=== PATIENT | male | born 1945 | race Caucasian/White ===

== ENCOUNTER 2018-12-07 00:01 | Inpatient (IN) | payer MEDICARE, OTHER ==
[~2018-12-07] VITALS: Ht 165.1 cm; Wt 61.2 kg
[2018-12-07] VITALS (7 sets, daily range): BP systolic 96–141; BP diastolic 58–82
--- NOTE | 2018-12-07 00:02 | NUR ---
ED Nurse Note: patient was BIBA due to ALOC, failure to thrive, not eating well and coughing for a week. Pt is AO x 1~2 times due to dementia status, VSS, on room air no distress. JARETTD seen Pt at bedside.
--- NOTE | 2018-12-07 00:33 | Emergency Room Report ---
History of Present Illness General Chief Complaint: Altered Level of Consciousness Source: Medical Record, EMS Present Illness HPI This is a 73-year-old male with multiple medical problems from care home. He presents with chief complaint of altered mental status. At baseline he is confused and bedbound. According to care home note, more confused of late. Decreased appetite. Had a nonproductive cough for the last week. No fever chills but no nausea no vomiting. No diarrhea. Allergies: Coded Allergies: No Known Allergies (Unverified , 12/07/18) Patient History Past Medical History: see triage record, old chart reviewed Past Surgical History: other Pertinent Family History: none Social History: Denies: smoking Immunizations: other Reviewed Nursing Documentation: PMH: Agreed; PSxH: Agreed Nursing Documentation-PMH Hx COPD: Yes History Of Psychiatric Problem: Yes - schizophrenia Hx Neurological Problems: Yes - insomnia Review of Systems Constitutional: Reports: weakness Eye: Denies: eye pain, blurred vision ENT: Denies: ear pain, nose congestion, throat swelling Respiratory: Reports: cough; Denies: shortness of breath Cardiovascular: Denies: chest pain, palpitations Gastrointestinal: Denies: abdominal pain, diarrhea, nausea, vomiting Musculoskeletal: Denies: back pain, joint pain Skin: Denies: rash Neurological: Denies: headache, numbness Endocrine: Denies: increased thirst, increased urine Hematologic/Lymphatic: Denies: easy bruising All Other Systems: negative except mentioned in HPI Physical Exam Vital Signs Date Time Temp Pulse Resp B/P (MAP) Pulse Ox O2 Delivery O2 Flow Rate FiO2 12/07/18 00:02 97.7 80 19 104/70 (81) 96 Room Air Vitals normal Sp02 EP Interpretation: reviewed, normal General Appearance: alert, thin, Chronically Ill Head: normocephalic, atraumatic Eyes: bilateral eye PERRL, bilateral eye EOMI ENT: hearing grossly normal, normal pharynx Neck: full range of motion, supple, no meningismus Respiratory: chest non-tender, lungs clear, normal breath sounds Cardiovascular #1: regular rate, rhythm, no murmur Gastrointestinal: normal bowel sounds, non tender, no mass, no organomegaly, no bruit, non-distended Musculoskeletal: back normal, other - Contracted Psychiatric: mood/affect normal Medical Decision Making Diagnostic Impression: Primary Impression: Altered level of consciousness Additional Impressions: Failure to thrive in adult CADENCE (acute kidney injury) ER Course Patient with altered mental status secondary to probably viral infection with a cough and elevated monocyte count. No evidence of bacterial infection. Chest x -ray negative. Troponin normal. Urinalysis unremarkable. Patient better after IV fluid. Will admit for further work-up. Patient will be admitted to the service of Dr. Alvarado. EKG Diagnostic Results Rate: normal Rhythm: NSR ST Segments: no acute changes Rhythm Strip Diag. Results EP Interpretation: yes Rate: 90 Rhythm: NSR, no PVC's, no ectopy Chest X-Ray Diagnostic Results Chest X-Ray Diagnostic Results : Chest X-Ray Ordered: Yes # of Views/Limited/Complete: 1 View Indication: Other EP Interpretation: Yes Interpretation: no consolidation, no effusion, no pneumothorax, no acute cardiopulmonary disease Impression: No acute disease Electronically Signed by: Francisco Piedra MD Last Vital Signs Date Time Temp Pulse Resp B/P (MAP) Pulse Ox O2 Delivery O2 Flow Rate FiO2 12/07/18 00:02 97.7 80 19 104/70 (81) 96 Room Air Status: improved Disposition: ADMITTED INPATIENT Condition: Serious Francisco Piedra MD Dec 07, 2018 00:33
[2018-12-07 00:38] LABS: BASOPHILS % (AUTO) 1.8 % (0.0-2.0); EOSINOPHILS % (AUTO) 2.5 % (0.0-3.0); HEMATOCRIT 42.5 % (42.0-52.0); LYMPHOCYTES % (AUTO) 41.2 % (20.0-45.0); MEAN CORPUSCULAR VOLUME 90 FL (80-99); MONOCYTES % (AUTO) 10.1 % (1.0-10.0); NEUTROPHILS % (AUTO) 44.5 % (45.0-75.0); PLATELET COUNT 321 K/UL (150-450); RED CELL DISTRIBUTION WIDTH 13.4 % (11.6-14.8); WHITE BLOOD COUNT 8.4 K/UL (4.8-10.8)
--- NOTE | 2018-12-07 00:42 | NUR ---
ED Nurse Note: Urine and blood sample sent to lab.
[2018-12-07 00:50] LABS: ANION GAP 8 mmol/L (5-15); BLOOD UREA NITROGEN 29 mg/dL (7-18); CALCIUM 9.8 MG/DL (8.5-10.1); CARBON DIOXIDE 26 MMOL/L (21-32); CHLORIDE 104 MMOL/L (98-107); CREATININE 1.5 MG/DL (0.55-1.30); POTASSIUM 4.8 MMOL/L (3.5-5.1); SODIUM 138 MMOL/L (136-145)
[2018-12-07 00:55] LABS: ALANINE AMINOTRANSFERASE 13 U/L (12-78); ALBUMIN 3.5 G/DL (3.4-5.0); ALBUMIN/GLOBULIN RATIO 0.8 (1.0-2.7); ALKALINE PHOSPHATASE 163 U/L (46-116); ASPARTATE AMINO TRANSFERASE 29 U/L (15-37); BILIRUBIN,TOTAL 0.4 MG/DL (0.2-1.0)
[2018-12-07 01:00] LABS: APPEARANCE,URINE CLEAR; BILIRUBIN, URINE NEGATIVE (NEGATIVE); COLOR,URINE PALE YELLOW; GLUCOSE, URINE (UA) NEGATIVE (NEGATIVE); KETONES,URINE NEGATIVE (NEGATIVE); LEUKOCYTE ESTERASE ,URINE 1+ (NEGATIVE); NITRITE,URINE NEGATIVE (NEGATIVE); PH,URINE 6.5 (4.5-8.0); PROTEIN,URINE 2+ (NEGATIVE); UROBILINOGEN,URINE NORMAL MG/DL (0.0-1.0)
--- NOTE | 2018-12-07 01:30 | NUR ---
ED Nurse Note: Offered drink and snack for Pt, Pt finished 100%.
--- NOTE | 2018-12-07 02:05 | NUR ---
ED Nurse Note: Pt removed IV site.
[2018-12-07] MEDS ORDERED: LEXAPRO10 MG ORAL (02:43)
[2018-12-07] MEDS ORDERED: GERI-KOT8.6 MG PO (02:43)
[2018-12-07] MEDS ORDERED: MESALAMINE DR400 MG PO (02:43)
[2018-12-07] MEDS ORDERED: SEROQUEL100 MG ORAL (02:43)
[2018-12-07] MEDS ORDERED: MELATONIN5 M2 SL (02:43)
[2018-12-07] MEDS ORDERED: CANAASA1000 MG RECTAL (02:43)
[2018-12-07] MEDS ORDERED: ATIVAN0.5 MG ORAL (02:43)
[2018-12-07] MEDS ORDERED: DULCOLAX STOOL100 M2 PO (02:43)
[2018-12-07] MEDS ORDERED: FLOMAX0.4 MG ORAL (02:43)
[2018-12-07] MEDS ORDERED: ABATINEX680 MG PO (02:43)
[2018-12-07] MEDS ORDERED: DOCUSATE SODIU100 MG ORAL (02:43)
[2018-12-07] MEDS ORDERED: LORazepam Inj 2mg/ml 1ml IV ONE ×2 (03:15→05:00)
--- NOTE | 2018-12-07 03:33 | NUR ---
ED Nurse Note: Pt will aboard in ER due to no sitter on floor. Inform 4E charge nurse and will give report at 6:00 in the morning.
--- NOTE | 2018-12-07 04:30 | NUR ---
ED Nurse Note: Pt restless and wants to get up, stay closer to monitor Pt for fall risk.
[2018-12-07] MEDS ORDERED: LORazepam Inj 2mg/ml 1ml ONE (04:54)
--- NOTE | 2018-12-07 06:30 | NUR ---
ED Nurse Note: Report given to charge nurse Elizabeth. Pt is AO x 4times, VSS, on room air no distress. Await transfer to floor when sitter arrive floor.
--- NOTE | 2018-12-07 07:04 | NUR ---
TRANSFER TO FLOOR: Patient transferred to as ordered, per Jenny. Report given to Elizabeth GUILLAUME.
--- NOTE | 2018-12-07 07:30 | NUR ---
NURSE NOTES: Received pt from [facility]. Pt is confused x2.pt is in RA, No SOB or acute respiratory distress noted. pt has intact iv access LFA 20G SL. Pt has a sitter. Dr HERBERT is notified about admission, waiting to call back for orders. all needs attended, bed is locked and is in the lowest position. call light within easy reach. will continue to monitor.
--- NOTE | 2018-12-07 09:15 | NUR ---
NURSE NOTES: Dr HERBERT called back, all orders noted and carried out. Dr JOHNSON and SHAVON are aware about consult. will continue to monitor.
--- NOTE | 2018-12-07 09:20 | NUR ---
NURSE NOTES: RN clarified all admission assessments and home meds orders with [facility]. Dr HERBERT ORDERED TO d/c MELATONIN.noted and carried out. will continue to monitor.
[2018-12-07] MEDS ORDERED: Acetaminophen 500mg (ES) tab ORAL PRN (09:30)
--- NOTE | 2018-12-07 10:54 | GI Initial Consult Note ---
History of Present Illness General Date patient seen: Dec 07, 2018 Time patient seen: 10:50 Reason for Hospitalization: Altered Level of Consciousness Referring physician: ROC HERBERT Reason for Consultation: FTT Present Illness HPI This is a 73-year-old male with multiple medical problems from [facility]. He presents with chief complaint of altered mental status. At baseline he is confused and bedbound. According to [facility] note, more confused of late. Decreased appetite. Had a nonproductive cough for the last week. No fever chills but no nausea no vomiting. No diarrhea. GI consulted for failure to thrive. ROS limited, patient with altered mental status. Patient seen, awake alert no apparent distress with no active signs or symptoms of nausea vomiting or diarrhea. No reported abdominal pain. Reported that the patient had severe agitation in the emergency room, but is calm at this time. Reported that the patient had decreased appetite. Unknown if patient had unintentional weight loss. No known history of endoscopic colonoscopy. Labs reviewed; no leukocytosis, no anemia, elevated alkaline phosphatase 163. Home Meds Reported Medications Quetiapine Fumarate* (SEROQUEL*) 100 Mg Tablet, 100 MG ORAL DAILY, TAB 12/07/18 Mesalamine (Mesalamine Dr) 400 Mg Cap.drtab., 400 MG PO 12/07/18 Mesalamine (Canasa) 1,000 Mg Supp.rect, 1000 MG RECTAL, SUPP 12/07/18 Melatonin (MELATONIN) 5 Mg Tab.subl, 5 MG SL BEDTIME PRN for Insomnia, TAB 12/07/18 Escitalopram Oxalate* (LEXAPRO*) 10 Mg Tablet, 10 MG ORAL DAILY, TAB 12/07/18 Lactobacillus Acidophilus (Abatinex) 680 Mg Capsule, 680 MG PO, CAP 12/07/18 Sennosides (Cookie-Natalya) 8.6 Mg Tablet, 8.6 MG PO, TAB 12/07/18 Tamsulosin HCl (Flomax) 0.4 Mg Cap.er.24h, 0.4 MG ORAL DAILY, CAP 12/07/18 Docusate Sodium (Dulcolax Stool Softener) 100 Mg Capsule, 100 MG PO, CAP 12/07/18 Docusate Sodium* (DOCUSATE SODIUM*) 100 Mg Capsule, 100 MG ORAL THREE TIMES A DAY, CAP 12/07/18 Lorazepam* (ATIVAN*) 0.5 Mg Tablet, 0.5 MG ORAL THREE TIMES A DAY, TAB 12/07/18 Med list reviewed/reconciled: Yes Allergies: Coded Allergies: No Known Allergies (Unverified , 12/07/18) Patient History History Provided By: Patient, Medical Record PMH Narrative Past Medical History: see triage record, old chart reviewed Past Surgical History: other Pertinent Family History: none Social History: Denies: smoking Immunizations: other Reviewed Nursing Documentation: PMH: Agreed; PSxH: Agreed Nursing Documentation-PMH Hx COPD: Yes History Of Psychiatric Problem: Yes - schizophrenia Hx Neurological Problems: Yes - insomnia Review of Systems All Other Systems: negative except mentioned in HPI Physical Exam Vital Signs Date Time Temp Pulse Resp B/P (MAP) Pulse Ox O2 Delivery O2 Flow Rate FiO2 12/07/18 00:02 97.7 80 19 104/70 (81) 96 Room Air Sp02 EP Interpretation: reviewed, normal Labs Laboratory Tests Test 12/07/18 00:20 12/07/18 00:36 White Blood Count 8.4 K/UL (4.8-10.8) Red Blood Count 4.70 M/UL (4.70-6.10) Hemoglobin 14.0 G/DL (14.2-18.0) L Hematocrit 42.5 % (42.0-52.0) Mean Corpuscular Volume 90 FL (80-99) Mean Corpuscular Hemoglobin 29.8 PG (27.0-31.0) Mean Corpuscular Hemoglobin Concent 33.0 G/DL (32.0-36.0) Red Cell Distribution Width 13.4 % (11.6-14.8) Platelet Count 321 K/UL (150-450) Mean Platelet Volume 9.2 FL (6.5-10.1) Neutrophils (%) (Auto) 44.5 % (45.0-75.0) L Lymphocytes (%) (Auto) 41.2 % (20.0-45.0) Monocytes (%) (Auto) 10.1 % (1.0-10.0) H Eosinophils (%) (Auto) 2.5 % (0.0-3.0) Basophils (%) (Auto) 1.8 % (0.0-2.0) Sodium Level 138 MMOL/L (136-145) Potassium Level 4.8 MMOL/L (3.5-5.1) Chloride Level 104 MMOL/L (98-107) Carbon Dioxide Level 26 MMOL/L (21-32) Anion Gap 8 mmol/L (5-15) Blood Urea Nitrogen 29 mg/dL (7-18) H Creatinine 1.5 MG/DL (0.55-1.30) H Estimat Glomerular Filtration Rate mL/min (>60) Glucose Level 102 MG/DL (74-106) Calcium Level 9.8 MG/DL (8.5-10.1) Total Bilirubin 0.4 MG/DL (0.2-1.0) Aspartate Amino Transf (AST/SGOT) 29 U/L (15-37) Alanine Aminotransferase (ALT/SGPT) 13 U/L (12-78) Alkaline Phosphatase 163 U/L (46-116) H Troponin I 0.015 ng/mL (0.000-0.056) Total Protein 7.8 G/DL (6.4-8.2) Albumin 3.5 G/DL (3.4-5.0) Globulin 4.3 g/dL Albumin/Globulin Ratio 0.8 (1.0-2.7) L Urine Color Pale yellow Urine Appearance Clear Urine pH 6.5 (4.5-8.0) Urine Specific [place] 1.010 (1.005-1.035) Urine Protein 2+ (NEGATIVE) H Urine Glucose (UA) Negative (NEGATIVE) Urine Ketones Negative (NEGATIVE) Urine Blood 3+ (NEGATIVE) H Urine Nitrite Negative (NEGATIVE) Urine Bilirubin Negative (NEGATIVE) Urine Urobilinogen Normal MG/DL (0.0-1.0) Urine Leukocyte Esterase 1+ (NEGATIVE) H Urine RBC 15-20 /HPF (0 - 0) H Urine WBC 2-4 /HPF (0 - 0) Urine Squamous Epithelial Cells None /LPF (NONE/OCC) Urine Bacteria Few /HPF (NONE) General Appearance: well appearing, no apparent distress, alert Head: normocephalic EENT: PERRL/EOMI, normal ENT inspection Neck: supple Respiratory: normal breath sounds, no respiratory distress Cardiovascular: normal rate Gastrointestinal: normal inspection, non tender, soft, normal bowel sounds, non -distended Rectal: deferred Genitourinary: deferred Musculoskeletal: normal inspection, back normal Neurologic: normal inspection, alert, oriented x3, responsive Psychiatric: normal inspection, judgement/insight normal, memory normal Skin: normal inspection, normal color, no rash, warm/dry, palpation normal, well hydrated Lymphatic: normal inspection, no adenopathy Current Medications Current Medications Medications (Trade) Dose Ordered Sig/Rah Route PRN Reason Start Time Stop Time Status Last Admin Dose Admin Acetaminophen (Tylenol) 500 mg Q4H PRN ORAL Mild Pain/Temp > 100.5 12/07/18 09:30 01/06/19 09:29 Docusate Sodium (Colace) 100 mg DAILY ORAL 12/08/18 09:00 01/07/19 08:59 Escitalopram Oxalate (Lexapro) 10 mg DAILY ORAL 12/08/18 09:00 01/07/19 08:59 Lactobacillus Acidophilus (Culturelle) 1 tab BID ORAL 12/07/18 18:00 01/06/19 17:59 Lorazepam (Ativan) 0.5 mg Q4H PRN ORAL For Anxiety 12/07/18 09:30 12/14/18 09:29 Mesalamine (Asacol) 800 mg THREE TIMES A DAY ORAL 12/07/18 13:00 01/06/19 12:59 Multivitamins (Multivitamins W/ Minerals 15ml Liquid) 15 ml DAILY ORAL 12/08/18 09:00 01/07/19 08:59 Quetiapine Fumarate (SEROquel) 100 mg TID ORAL 12/07/18 13:00 01/06/19 12:59 Sennosides (Senokot) 17.2 mg QHS ORAL 12/07/18 21:00 01/06/19 20:59 Tamsulosin HCl (Flomax) 0.4 mg BEDTIME ORAL 12/07/18 21:00 01/06/19 20:59 GI: Plan Problems: (1) Severe malnutrition (2) Altered level of consciousness (3) CADENCE (acute kidney injury) (4) Failure to thrive in adult Plan No plans for GI procedures at this time supportive care Patient is on a regular diet Obtain 48-hour calorie count We will consider Marinol Zofran as needed PPI Follow-up psychiatric recommendations outpatient GI procedures Discussed with Dr. Marcus. Thank you for this patient referral, we will follow. The patient was seen and examined at bedside and all new and available data was reviewed in the patients chart. I agree with the above findings, impression and plan. (Patient seen earlier today. Signature stamp does not reflect patient encounter time.). - MD Dorothea Arndt AnhColin SHOEMAKER Dec 07, 2018 10:54
[2018-12-07] MEDS: Mesalamine 400mg cap ORAL SCH ×2 (12:14→17:10)
--- NOTE | 2018-12-07 13:07 | Consultation ---
Consult Note Consult Note asked to eval for elevated Cr Chief Complaint: Altered Level of Consciousness This is a 73-year-old male with multiple medical problems from detention. He presents with chief complaint of altered mental status. At baseline he is confused and bedbound. According to detention note, more confused of late. Decreased appetite. Had a nonproductive cough for the last week. No fever chills but no nausea no vomiting. No diarrhea. No Known Allergies (Unverified , 12/07/18) Hx COPD: Yes History Of Psychiatric Problem: Yes - schizophrenia Hx Neurological Problems: Yes - insomnia examined non communicative at this time . Assessment/Plan dehydration Failure to Thrive COPD Psych history UTI Hydrate Urine c/s urine tox screen monitor renal parameters Gerardo Medina MD Dec 07, 2018 13:06
[2018-12-07] MEDS: Tamsulosin 0.4mg cap ORAL SCH ×2 (14:02→17:12)
--- NOTE | 2018-12-07 14:02 | Diagnostic Imaging Report ---
Indication: Dyspnea Comparison: None A single view chest radiograph was obtained. Findings: No definite infiltrate or pulmonary vascular congestion identified. Evaluation is limited by rotation. The heart is borderline enlarged. The aorta is mildly enlarged consistent with atherosclerotic vascular disease. The bones are osteopenic. Impression: No acute disease
--- NOTE | 2018-12-07 14:05 | NUR ---
RD ASSESSMENT & RECOMMENDATIONS SEE CARE ACTIVITY FOR COMPLETE ASSESSMENT DAILY ESTIMATED NEEDS: Needs based on Possibly underweight/ 51kg 30-35 kcals/kg 3966-8979 total kcals 1-1.5 g protein/kg 51-76 g total protein 25-30 mL/kg 9730-6573 total fluid mLs NUTRITION DIAGNOSIS: * Inadequate oral intake R/T decreased appetite, clinical condition, AMS as evidenced by pt admitted w/ dx of FTT, w/ possible significant wt loss of 6lbs/5.1% in 1 month. CURRENT DIET:LOW NA, soft easy chew PO DIET RECOMMENDATIONS: Liberalized REGULAR w/ poor PO + Ensure Enlive TID w/ meals ADDITIONAL RECOMMENDATIONS: * F/up w/ calorie count x 48 hrs * Calibrated bedscale wt, weekly wt monitoring -> possible recent significant wt loss -> ht per SNF: 61" * Continue MVI x 1 as supplement
--- NOTE | 2018-12-07 16:07 | NUR ---
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 CADENCE VS: BP 141/70, P 80, T 97.7, RR 19, SpO2 96 Hgb 14.0, BUN 29, CR 1.5, ALP 163 IS:NS x1L IV LORAZEPAM 1mg IV ADMITTED TO MED/SURG DCP: RETURN TO [facility]
--- NOTE | 2018-12-07 16:29 | NUR ---
NURSE NOTES: Dr HERBERT D/Brandyn white, noted and carried out. will continue to monitor.
--- NOTE | 2018-12-07 17:03 | Cardiology Report ---
APPROVED REPORT EKG Measurement Heart [id number] Normal sinus rhythm Inferior infarct, age undetermined Anterolateral infarct, age undetermined Abnormal ECG
[2018-12-07] MEDS: Docusate 100mg cap ORAL SCH (17:10)
[2018-12-07] MEDS: Lactobacillus-GG tablet ORAL SCH (17:11)
--- NOTE | 2018-12-07 19:33 | NUR ---
HAND-OFF: Report given to RN GALEN. ENDORSED TO F/U FOR COLLECTING URIN.
--- NOTE | 2018-12-07 20:30 | NUR ---
NURSE NOTES: Pt is in bed, awake and verbal. No acute distress noted. Pt is confused. Fall precaution in place, bed alarm on. Pt is able to eat. Pt moved close to nursing station. Bed locked low in position,side rails up and call light within reach.Pt instructed to call before getting out of bed. Pt will be monitored.
[2018-12-07] MEDS ORDERED: Tamsulosin 0.4mg cap ORAL SCH (21:00)
[2018-12-07] MEDS: Sennosides 8.6mg tab ORAL SCH (21:52)
--- NOTE | 2018-12-07 23:00 | History and Physical Report ---
DATE OF ADMISSION: 12/07/2018 HISTORY OF PRESENT ILLNESS: The patient is admitted for failure to thrive, dehydration from the shelter, azotemia. Denies nausea, vomiting, or diarrhea. Denies fever, chills, abdominal pain. Denies shortness of breath. Denies cough. Denies pain. Denies any symptoms at this point. PAST MEDICAL HISTORY: Significant for anxiety, constipation, mood disorder, insomnia, psychosis, BPH, hernia. PAST SURGICAL HISTORY: Hernia repair. SOCIAL HISTORY: History of smoking. No history of alcohol or illicit drugs. ALLERGIES: No known allergies. MEDICATIONS: Lexapro, Ativan, Seroquel, Senokot, and Flomax. FAMILY HISTORY: Noncontributory. REVIEW OF SYSTEMS: HEENT: Denies headaches. PULMONARY: Denies shortness of breath. Denies cough. CARDIOVASCULAR: Denies chest pain. GASTROINTESTINAL: Denies nausea, vomiting, diarrhea. EXTREMITIES: Denies pain in lower extremities. CENTRAL NERVOUS SYSTEM: Denies changes in vision or speech pattern. PHYSICAL EXAMINATION: VITAL SIGNS: Temperature 98.2, pulse is 100, blood pressure 141/70. HEENT: PERRLA. NECK: Supple. No lymphadenopathy. CHEST: Clear to auscultation. CARDIOVASCULAR: Regular rate and rhythm. No murmurs or extra sounds. GASTROINTESTINAL: Soft, nontender, nondistended. No organomegaly. EXTREMITIES: No edema. Moves all four extremities. NEUROLOGIC: Sensory intact to light touch. Reflexes on both sides. Moves all four extremities. ASSESSMENT AND PLAN: Dehydration, azotemia. I have consulted Dr. Walter, Dr. Medina, and Dr. Marcus for failure to thrive, dehydration, also for his psychiatric conditions and psychiatric medication followup. Makayla Alvarado M.D. DR: JIMMIE JOB#: [id number] CC:
--- NOTE | 2018-12-07 23:43 | NUR ---
NURSE NOTES: Specimen container given to patient to collect urine for labs.
[2018-12-08] VITALS: BP 132/79
[2018-12-08 04:00] VITALS: BP 124/70
--- NOTE | 2018-12-08 04:00 | Consultation ---
DATE OF CONSULTATION: 12/07/2018 HISTORY OF PRESENT ILLNESS: This is a 73-year-old male with a history of anxiety disorder, psychotic disorder, dementia, insomnia, constipation, BPH, and hernia, was admitted to the hospital due to failure to thrive. The patient has been agitated and he was placed on a one-to-one sitter. The patient refused an MRI. He is on high dose of Seroquel 300 mg a day. The patient was lethargic during the evaluation and was unable to provide any history. PAST PSYCHIATRIC HISTORY: Anxiety, psychotic disorder, and dementia. PAST SURGICAL HISTORY: Hernia repair. ALLERGIES: No known drug allergies. SUBSTANCE ABUSE HISTORY: No known history of illicit drug use or alcohol. The patient is a smoker. MENTAL STATUS EXAMINATION: The patient was lethargic and was unable to answers the questions. The eyes are closed. Affect was flat. No psychomotor agitation. Cognition severely impaired. ASSESSMENT: AXIS I: Acute encephalopathy. Major depressive disorder. Psychotic disorder. AXIS II: Deferred. AXIS III: Failure to thrive. AXIS IV: Low. AXIS V: 10. PLAN: 1. We will decrease the Seroquel to 50 mg t.i.d. 2. Continue the Lexapro. 3. Ativan p.r.n. 4. Discontinue the sitter. 5. Continue to follow and readjust the medications. Sandra Walter M.D. DR: ROMELIA JOB#: [id number] CC:
--- NOTE | 2018-12-08 04:21 | NUR ---
NURSE NOTES: Urine sample sent to lab, Pt had a Bm. Pt is able to go to the commode with assistance.
--- NOTE | 2018-12-08 06:00 | NUR ---
NURSE NOTES: Pt is high fall risk, pt does not follow instructions, continues to get out of bed. Bed alarm on. Reorientation provided. Fall precaution in place, bed alarm on. Pt requires close monitoring by staff. Ativan 0.5mg given po for agitation. Pt takes oral intake.
[2018-12-08 06:33] LABS: BASOPHILS % (AUTO) 1.5 % (0.0-2.0); EOSINOPHILS % (AUTO) 2.5 % (0.0-3.0); HEMATOCRIT 35.7 % (42.0-52.0); HEMOGLOBIN 11.6 G/DL (14.2-18.0); LYMPHOCYTES % (AUTO) 33.9 % (20.0-45.0); MEAN CORPUSCULAR VOLUME 92 FL (80-99); MONOCYTES % (AUTO) 11.1 % (1.0-10.0); NEUTROPHILS % (AUTO) 50.9 % (45.0-75.0); PLATELET COUNT 276 K/UL (150-450); RED BLOOD COUNT 3.86 M/UL (4.70-6.10); RED CELL DISTRIBUTION WIDTH 13.6 % (11.6-14.8); WHITE BLOOD COUNT 7.7 K/UL (4.8-10.8)
[2018-12-08] MEDS: LORazepam 0.5mg tab ORAL PRN ×4 (06:46→21:14)
[2018-12-08 07:13] LABS: ALANINE AMINOTRANSFERASE 13 U/L (12-78); ALBUMIN/GLOBULIN RATIO 0.8 (1.0-2.7); ALKALINE PHOSPHATASE 132 U/L (46-116); ANION GAP 9 mmol/L (5-15); ASPARTATE AMINO TRANSFERASE 14 U/L (15-37); BILIRUBIN,TOTAL 0.2 MG/DL (0.2-1.0); BLOOD UREA NITROGEN 32 mg/dL (7-18); CALCIUM 9.2 MG/DL (8.5-10.1); CARBON DIOXIDE 24 MMOL/L (21-32); CHLORIDE 110 MMOL/L (98-107); CHOLESTEROL 156 MG/DL (< 200); CREATININE 1.6 MG/DL (0.55-1.30); HDL CHOLESTEROL 47 MG/DL (40-60); POTASSIUM 3.9 MMOL/L (3.5-5.1); SODIUM 143 MMOL/L (136-145); TRIGLYCERIDES 75 MG/DL (30-150)
[2018-12-08 07:14] LABS: CREATINE KINASE 156 U/L (26-308); PHOSPHORUS 3.6 MG/DL (2.5-4.9)
--- NOTE | 2018-12-08 07:30 | NUR ---
HAND-OFF: Report given to Miri Wu RN.Informed Miri that patient is high risk for Fall.
[2018-12-08 08:00] VITALS: BP 107/65
--- NOTE | 2018-12-08 08:32 | NUR ---
NURSE NOTES: Patient alert and awake. Patient is unsteady. Patient is trying to get out of bed. Patient not following commands. Patient re-oriented and assisted back to bed. Bed alarm is on, bed is locked and in lowest position. Dr. Alvarado called nurse's station with order to discharge patient. Order entered. Will continue to monitor.
[2018-12-08] MEDS: Tamsulosin 0.4mg cap ORAL SCH ×2 (08:46→18:13)
[2018-12-08] MEDS: Mesalamine 400mg cap ORAL SCH ×3 (08:47→18:13)
[2018-12-08] MEDS: Multivitamins W/Minerals 15 ML UDC ORAL SCH (08:47)
[2018-12-08] MEDS: Docusate 100mg cap ORAL SCH ×3 (08:47→18:13)
[2018-12-08] MEDS: Lactobacillus-GG tablet ORAL SCH ×2 (08:47→18:13)
[2018-12-08] MEDS ORDERED: Docusate 100mg cap ORAL SCH (09:00)
--- NOTE | 2018-12-08 09:38 | NUR ---
CASE DYLAN NOTES FAXED REFERRAL TO [facility], CALLED TO FOLLOW UP AND WAS TOLD TO CALL BACK IN 3 HRS.
[2018-12-08 12:00] VITALS: BP 95/65
--- NOTE | 2018-12-08 12:08 | GI Progress Note ---
Assessment/Plan Problems: (1) Failure to thrive in adult ICD Codes: R62.7 - Adult failure to thrive SNOMED: 636903513 (2) Altered level of consciousness ICD Codes: R40.4 - Transient alteration of awareness SNOMED: 7884747 (3) Severe malnutrition ICD Codes: E43 - Unspecified severe protein-calorie malnutrition SNOMED: 68436814 Status: unchanged Status Narrative Discussed with Dr. Marcus. Assessment/Plan No plans for GI procedures at this time supportive care Patient is on a regular diet Obtain 48-hour calorie count We will consider Marinol Zofran as needed PPI Follow-up psychiatric recommendations outpatient GI procedures The patient was seen and examined at bedside and all new and available data was reviewed in the patients chart. I agree with the above findings, impression and plan. (Patient seen earlier today. Signature stamp does not reflect patient encounter time.). - Ye Marcus MD Subjective Gastrointestinal/Abdominal: Reports: no symptoms Objective Last 24 Hour Vital Signs Date Time Temp Pulse Resp B/P (MAP) Pulse Ox O2 Delivery O2 Flow Rate FiO2 12/08/18 08:00 96.9 98 18 107/65 (79) 95 12/08/18 08:00 Room Air 12/08/18 04:00 97.2 74 18 124/70 (88) 96 12/08/18 00:00 97.8 84 18 132/79 (96) 96 12/07/18 21:00 Room Air 12/07/18 20:00 97.8 98 20 96/58 (71) 96 12/07/18 16:00 97.3 82 17 117/72 (87) 97 Intake and Output 12/07/18 12/08/18 19:00 07:00 Intake Total 700 ml 400 ml Output Total 1000 ml Balance 700 ml -600 ml Intake Oral 200 ml 400 ml IV Total 500 ml Output Urine Total 1000 ml # Voids 3 5 # Bowel Movements 1 Laboratory Tests Test 12/08/18 02:30 12/08/18 04:50 Urine Opiates Screen Negative (NEGATIVE) Urine Barbiturates Screen Negative (NEGATIVE) Phencyclidine (PCP) Screen Negative (NEGATIVE) Urine Amphetamines Screen Negative (NEGATIVE) Urine Benzodiazepines Screen Negative (NEGATIVE) Urine Cocaine Screen Negative (NEGATIVE) Urine Marijuana (THC) Screen Negative (NEGATIVE) White Blood Count 7.7 K/UL (4.8-10.8) Red Blood Count 3.86 M/UL (4.70-6.10) L Hemoglobin 11.6 G/DL (14.2-18.0) L Hematocrit 35.7 % (42.0-52.0) L Mean Corpuscular Volume 92 FL (80-99) Mean Corpuscular Hemoglobin 30.0 PG (27.0-31.0) Mean Corpuscular Hemoglobin Concent 32.4 G/DL (32.0-36.0) Red Cell Distribution Width 13.6 % (11.6-14.8) Platelet Count 276 K/UL (150-450) Mean Platelet Volume 8.8 FL (6.5-10.1) Neutrophils (%) (Auto) 50.9 % (45.0-75.0) Lymphocytes (%) (Auto) 33.9 % (20.0-45.0) Monocytes (%) (Auto) 11.1 % (1.0-10.0) H Eosinophils (%) (Auto) 2.5 % (0.0-3.0) Basophils (%) (Auto) 1.5 % (0.0-2.0) Sodium Level 143 MMOL/L (136-145) Potassium Level 3.9 MMOL/L (3.5-5.1) Chloride Level 110 MMOL/L (98-107) H Carbon Dioxide Level 24 MMOL/L (21-32) Anion Gap 9 mmol/L (5-15) Blood Urea Nitrogen 32 mg/dL (7-18) H Creatinine 1.6 MG/DL (0.55-1.30) H Estimat Glomerular Filtration Rate mL/min (>60) Glucose Level 102 MG/DL (74-106) Hemoglobin A1c 5.4 % (4.3-6.0) Uric Acid 5.3 MG/DL (2.6-7.2) Calcium Level 9.2 MG/DL (8.5-10.1) Phosphorus Level 3.6 MG/DL (2.5-4.9) Magnesium Level 2.0 MG/DL (1.8-2.4) Total Bilirubin 0.2 MG/DL (0.2-1.0) Aspartate Amino Transf (AST/SGOT) 14 U/L (15-37) L Alanine Aminotransferase (ALT/SGPT) 13 U/L (12-78) Alkaline Phosphatase 132 U/L (46-116) H Total Creatine Kinase 156 U/L (26-308) C-Reactive Protein, Quantitative < 0.4 mg/dL (0.00-0.90) Pro-B-Type Natriuretic Peptide 504 pg/mL (0-125) H Total Protein 6.6 G/DL (6.4-8.2) Albumin 3.0 G/DL (3.4-5.0) L Globulin 3.6 g/dL Albumin/Globulin Ratio 0.8 (1.0-2.7) L Triglycerides Level 75 MG/DL (30-150) Cholesterol Level 156 MG/DL (< 200) LDL Cholesterol 93 mg/dL (<100) HDL Cholesterol 47 MG/DL (40-60) Cholesterol/HDL Ratio 3.3 (3.3-4.4) Vitamin B12 Level 562 PG/ML (193-986) Folate 18.6 NG/ML (8.6-58.9) Thyroid Stimulating Hormone (TSH) 1.820 uiU/mL (0.358-3.740) Height (Feet): 5 Height (Inches): 5.00 Weight (Pounds): 135 General Appearance: WD/WN, no apparent distress, alert Cardiovascular: normal rate Respiratory/Chest: normal breath sounds, no respiratory distress Abdominal Exam: normal bowel sounds, non tender, soft Extremities: normal range of motion, non-tender Rayna Piedra NP Dec 08, 2018 12:08
--- NOTE | 2018-12-08 13:41 | NUR ---
JOURNEYMAN LINEMAN NOTES CALLED BACK [facility] TO GET PATIENT BED WAS TOLD ADMISSION IS STILL IN 3 HOUR MEETING TO CALL BACK IN 2 HOURS.
--- NOTE | 2018-12-08 14:02 | NUR ---
WINE MANAGER NOTE CALLED BACK AND SPOKE TO ADMISSIONS OFFICE WAS TOLD SHE JUST RETURNED AND HAD TO REVIEW THE CHART WILL CALL BACK IN 30 MINUTES.
--- NOTE | 2018-12-08 15:09 | Nephrology Progress Note ---
Assessment/Plan Problem List: (1) CADENCE (acute kidney injury) (2) Dehydration (3) UTI (urinary tract infection) Assessment dehydration Failure to Thrive COPD Psych history UTI Plan Hydrate Urine c/s urine tox screen monitor renal parameters Subjective ROS Limited/Unobtainable: No Constitutional: Reports: malaise, weakness Objective Objective Last 24 Hour Vital Signs Date Time Temp Pulse Resp B/P (MAP) Pulse Ox O2 Delivery O2 Flow Rate FiO2 12/08/18 08:00 96.9 98 18 107/65 (79) 95 12/08/18 08:00 Room Air 12/08/18 04:00 97.2 74 18 124/70 (88) 96 12/08/18 00:00 97.8 84 18 132/79 (96) 96 12/07/18 21:00 Room Air 12/07/18 20:00 97.8 98 20 96/58 (71) 96 12/07/18 16:00 97.3 82 17 117/72 (87) 97 Intake and Output 12/07/18 12/08/18 19:00 07:00 Intake Total 700 ml 400 ml Output Total 1000 ml Balance 700 ml -600 ml Intake Oral 200 ml 400 ml IV Total 500 ml Output Urine Total 1000 ml # Voids 3 5 # Bowel Movements 1 Laboratory Tests 12/08/18 02:30: Urine Opiates Screen Negative, Urine Barbiturates Screen Negative, Phencyclidine (PCP) Screen Negative, Urine Amphetamines Screen Negative, Urine Benzodiazepines Screen Negative, Urine Cocaine Screen Negative, Urine Marijuana (THC) Screen Negative 12/08/18 04:50: White Blood Count 7.7, Red Blood Count 3.86L, Hemoglobin 11.6L, Hematocrit 35.7L , Mean Corpuscular Volume 92, Mean Corpuscular Hemoglobin 30.0, Mean Corpuscular Hemoglobin Concent 32.4, Red Cell Distribution Width 13.6, Platelet Count 276, Mean Platelet Volume 8.8, Neutrophils (%) (Auto) 50.9, Lymphocytes (% ) (Auto) 33.9, Monocytes (%) (Auto) 11.1H, Eosinophils (%) (Auto) 2.5, Basophils (%) (Auto) 1.5, Sodium Level 143, Potassium Level 3.9, Chloride Level 110H, Carbon Dioxide Level 24, Anion Gap 9, Blood Urea Nitrogen 32H, Creatinine 1.6H, Estimat Glomerular Filtration Rate , Glucose Level 102, Hemoglobin A1c 5.4 , Uric Acid 5.3, Calcium Level 9.2, Phosphorus Level 3.6, Magnesium Level 2.0, Total Bilirubin 0.2, Aspartate Amino Transf (AST/SGOT) 14L, Alanine Aminotransferase (ALT/SGPT) 13, Alkaline Phosphatase 132H, Total Creatine Kinase 156, C-Reactive Protein, Quantitative < 0.4, Pro-B-Type Natriuretic Peptide 504H, Total Protein 6.6, Albumin 3.0L, Globulin 3.6, Albumin/Globulin Ratio 0.8L, Triglycerides Level 75, Cholesterol Level 156, LDL Cholesterol 93, HDL Cholesterol 47, Cholesterol/HDL Ratio 3.3, Vitamin B12 Level 562, Folate 18.6, Thyroid Stimulating Hormone (TSH) 1.820 Height (Feet): 5 Height (Inches): 5.00 Weight (Pounds): 135 General Appearance: no apparent distress Neck: limited range of motion Cardiovascular: other - variable Respiratory/Chest: decreased breath sounds Abdomen: soft Gerardo Medina MD Dec 08, 2018 15:09
--- NOTE | 2018-12-08 15:28 | NUR ---
NURSE NOTES: Patient is restless and agitated. PRN medication for anxiety given. Patient continues to be agitated. Patient not following commands. Patient's gait is unsteady. Patient assisted back multiple times by RN. Patient continues to get out of bed and is high risk for fall. Dr. Alvarado notified, RN deferred to Dr. Walter. Dr. Walter contacted new order for restraints received. Bilateral soft wrist restraints applied. Will continue to monitor.
[2018-12-08] MEDS: D5 1/2NS 1,000 ML IV SCH (15:44)
[2018-12-08 16:00] VITALS: BP 106/65
--- NOTE | 2018-12-08 17:30 | Progress Note ---
DATE: 12/08/2018 SUBJECTIVE: The patient is somewhat sedated and dozing off during the conversation. The patient has been falling asleep while he was eating his food. The patient is a poor historian. Did not know the date. No agitation today. MENTAL STATUS EXAMINATION: The patient has waxing and waning consciousness. Disoriented to date and situation he is in. Mood is neutral. Affect is flat. Thought process is concrete. Thought content, no suicidal or homicidal ideations. ASSESSMENT: Acute encephalopathy and dementia. PLAN: 1. The patient will be continued on Seroquel. The Seroquel was reduced from 300 mg to 150 mg in the morning. 2. Continue the Lexapro. 3. Provide the patient with reality orientation and supportive therapy. 4. Continue to raise the head of the bed and discussed with the nurse. Sandra Walter M.D. DR: ROMELIA JOB#: [id number] CC:
[2018-12-08 20:00] VITALS: BP 98/68
--- NOTE | 2018-12-08 20:00 | Consultation ---
History of Present Illness General Date patient seen: Dec 08, 2018 Reason for Hospitalization: Altered Level of Consciousness Present Illness HPI 73-year-old male with multiple medical problems from jail. He presents with chief complaint of altered mental status. At baseline he is confused and bedbound. According to jail note, more confused of late. Decreased appetite. Has been agitated, confused, aggressive. Allergies: Coded Allergies: No Known Allergies (Unverified , 12/07/18) Medication History Scheduled Docusate Sodium* (Docusate Sodium*), 100 MG ORAL THREE TIMES A DAY, (Reported) Escitalopram Oxalate* (Lexapro*), 10 MG ORAL DAILY, (Reported) Lorazepam* (Ativan*), 0.5 MG ORAL THREE TIMES A DAY, (Reported) Quetiapine Fumarate* (Seroquel*), 100 MG ORAL DAILY, (Reported) Tamsulosin HCl (Flomax), 0.4 MG ORAL DAILY, (Reported) Scheduled PRN Melatonin (Melatonin), 5 MG SL BEDTIME PRN for Insomnia, (Reported) Miscellaneous Medications Docusate Sodium (Dulcolax Stool Softener), 100 MG PO, (Reported) Lactobacillus Acidophilus (Abatinex), 680 MG PO, (Reported) Mesalamine (Canasa), 1,000 MG RECTAL, (Reported) Mesalamine (Mesalamine Dr), 400 MG PO, (Reported) Sennosides (Cookie-Natalya), 8.6 MG PO, (Reported) Patient History Healthcare decision maker Resuscitation status Full Code Advanced Directive on File Review of Systems Review of Symptoms General ROS: no weight loss or fever Psychological ROS: no depression or mood changes, no memory loss Ophthalmic ROS: no visual changes or eye irritation ENT ROS: no nasal congestion, hearing loss, dizziness Allergy and Immunology ROS: no allergic symptoms or urticaria Hematological and Lymphatic ROS: no swollen glands, unusual bleeding or bruising Endocrine ROS: no polyuria, polydipsia, weight changes, temperature intolerance Respiratory ROS: no cough, shortness of breath, or wheezing Cardiovascular ROS: no chest pain or dyspnea on exertion Gastrointestinal ROS: denies abdominal pain, bright red blood in stool. Musculoskeletal ROS: no myalgias or arthralgias Neurological ROS: no TIA or stroke symptoms Dermatological ROS: no new or changing skin lesions, rashes or pruritis Physical Exam Physical Exam General appearance: agitated Head: Normocephalic, without obvious abnormality, atraumatic Eyes: conjunctivae/corneas clear. PERRL, EOM's intact. Fundi benign Throat: Lips, mucosa, and tongue normal. Teeth and gums normal Neck: supple, symmetrical, trachea midline, no adenopathy, thyroid: not enlarged, symmetric, no tenderness/mass/nodules, no carotid bruit and no JVD Lungs: clear to auscultation bilaterally Heart: regular rate and rhythm, S1, S2 normal, no murmur, click, rub or gallop Abdomen: soft, non-tender. Bowel sounds normal. No masses, no organomegaly Extremities: extremities normal, atraumatic, no cyanosis or edema Pulses: 2+ and symmetric Skin: Skin color, texture, turgor normal. No rashes or lesions Neurologic: confused, moves all 4 Last 24 Hour Vital Signs Date Time Temp Pulse Resp B/P (MAP) Pulse Ox O2 Delivery O2 Flow Rate FiO2 12/08/18 16:00 98.0 85 16 106/65 (79) 95 12/08/18 12:00 97.5 96 18 95/65 (75) 95 12/08/18 08:00 96.9 98 18 107/65 (79) 95 12/08/18 08:00 Room Air 12/08/18 04:00 97.2 74 18 124/70 (88) 96 12/08/18 00:00 97.8 84 18 132/79 (96) 96 12/07/18 21:00 Room Air 12/07/18 20:00 97.8 98 20 96/58 (71) 96 Intake and Output 12/07/18 12/08/18 19:00 07:00 Intake Total 700 ml 400 ml Output Total 1000 ml Balance 700 ml -600 ml Intake Oral 200 ml 400 ml IV Total 500 ml Output Urine Total 1000 ml # Voids 3 5 # Bowel Movements 1 Laboratory Tests Test 12/08/18 02:30 12/08/18 04:50 Urine Opiates Screen Negative (NEGATIVE) Urine Barbiturates Screen Negative (NEGATIVE) Phencyclidine (PCP) Screen Negative (NEGATIVE) Urine Amphetamines Screen Negative (NEGATIVE) Urine Benzodiazepines Screen Negative (NEGATIVE) Urine Cocaine Screen Negative (NEGATIVE) Urine Marijuana (THC) Screen Negative (NEGATIVE) White Blood Count 7.7 K/UL (4.8-10.8) Red Blood Count 3.86 M/UL (4.70-6.10) L Hemoglobin 11.6 G/DL (14.2-18.0) L Hematocrit 35.7 % (42.0-52.0) L Mean Corpuscular Volume 92 FL (80-99) Mean Corpuscular Hemoglobin 30.0 PG (27.0-31.0) Mean Corpuscular Hemoglobin Concent 32.4 G/DL (32.0-36.0) Red Cell Distribution Width 13.6 % (11.6-14.8) Platelet Count 276 K/UL (150-450) Mean Platelet Volume 8.8 FL (6.5-10.1) Neutrophils (%) (Auto) 50.9 % (45.0-75.0) Lymphocytes (%) (Auto) 33.9 % (20.0-45.0) Monocytes (%) (Auto) 11.1 % (1.0-10.0) H Eosinophils (%) (Auto) 2.5 % (0.0-3.0) Basophils (%) (Auto) 1.5 % (0.0-2.0) Sodium Level 143 MMOL/L (136-145) Potassium Level 3.9 MMOL/L (3.5-5.1) Chloride Level 110 MMOL/L (98-107) H Carbon Dioxide Level 24 MMOL/L (21-32) Anion Gap 9 mmol/L (5-15) Blood Urea Nitrogen 32 mg/dL (7-18) H Creatinine 1.6 MG/DL (0.55-1.30) H Estimat Glomerular Filtration Rate mL/min (>60) Glucose Level 102 MG/DL (74-106) Hemoglobin A1c 5.4 % (4.3-6.0) Uric Acid 5.3 MG/DL (2.6-7.2) Calcium Level 9.2 MG/DL (8.5-10.1) Phosphorus Level 3.6 MG/DL (2.5-4.9) Magnesium Level 2.0 MG/DL (1.8-2.4) Total Bilirubin 0.2 MG/DL (0.2-1.0) Aspartate Amino Transf (AST/SGOT) 14 U/L (15-37) L Alanine Aminotransferase (ALT/SGPT) 13 U/L (12-78) Alkaline Phosphatase 132 U/L (46-116) H Total Creatine Kinase 156 U/L (26-308) C-Reactive Protein, Quantitative < 0.4 mg/dL (0.00-0.90) Pro-B-Type Natriuretic Peptide 504 pg/mL (0-125) H Total Protein 6.6 G/DL (6.4-8.2) Albumin 3.0 G/DL (3.4-5.0) L Globulin 3.6 g/dL Albumin/Globulin Ratio 0.8 (1.0-2.7) L Triglycerides Level 75 MG/DL (30-150) Cholesterol Level 156 MG/DL (< 200) LDL Cholesterol 93 mg/dL (<100) HDL Cholesterol 47 MG/DL (40-60) Cholesterol/HDL Ratio 3.3 (3.3-4.4) Vitamin B12 Level 562 PG/ML (193-986) Folate 18.6 NG/ML (8.6-58.9) Thyroid Stimulating Hormone (TSH) 1.820 uiU/mL (0.358-3.740) Height (Feet): 5 Height (Inches): 5.00 Weight (Pounds): 135 Medications Current Medications Medications (Trade) Dose Ordered Sig/Rah Route PRN Reason Start Time Stop Time Status Last Admin Dose Admin Acetaminophen (Tylenol) 500 mg Q4H PRN ORAL Mild Pain/Temp > 100.5 12/07/18 09:30 01/06/19 09:29 Dextrose/Sodium Chloride 1,000 ml @ 75 mls/hr [id number] IV 12/08/18 15:15 01/07/19 15:14 12/08/18 15:44 Docusate Sodium (Colace) 100 mg TID ORAL 12/07/18 18:00 01/07/19 08:59 12/08/18 18:13 Escitalopram Oxalate (Lexapro) 10 mg DAILY ORAL 12/08/18 09:00 01/07/19 08:59 12/08/18 08:46 Lactobacillus Acidophilus (Culturelle) 1 tab BID ORAL 12/07/18 18:00 01/06/19 17:59 12/08/18 18:13 Lorazepam (Ativan) 0.5 mg Q4H PRN ORAL For Anxiety 12/07/18 09:30 12/14/18 09:29 12/08/18 14:45 Mesalamine (Asacol) 800 mg THREE TIMES A DAY ORAL 12/07/18 13:00 01/06/19 12:59 12/08/18 18:13 Multivitamins (Multivitamins W/ Minerals 15ml Liquid) 15 ml DAILY ORAL 12/08/18 09:00 01/07/19 08:59 12/08/18 08:47 Quetiapine Fumarate (SEROquel) 50 mg TID ORAL 12/08/18 09:00 01/07/19 08:59 12/08/18 18:13 Sennosides (Senokot) 17.2 mg QHS ORAL 12/07/18 21:00 01/06/19 20:59 12/07/18 21:52 Tamsulosin HCl (Flomax) 0.4 mg BID ORAL 12/07/18 13:15 01/06/19 20:59 12/08/18 18:13 Assessment/Plan Problem List: (1) CADENCE (acute kidney injury) ICD Codes: N17.9 - Acute kidney failure, unspecified SNOMED: 03435221, 3484849 (2) Severe malnutrition ICD Codes: E43 - Unspecified severe protein-calorie malnutrition SNOMED: 88043240 (3) Altered level of consciousness ICD Codes: R40.4 - Transient alteration of awareness SNOMED: 5846827 (4) Failure to thrive in adult ICD Codes: R62.7 - Adult failure to thrive SNOMED: 513792443 (5) Dehydration ICD Codes: E86.0 - Dehydration SNOMED: 20722757 (6) UTI (urinary tract infection) ICD Codes: N39.0 - Urinary tract infection, site not specified SNOMED: 61697702 Status: deteriorating Assessment/Plan: Acute encephalopathy with agitation Seroquel 50 mg qhs [facility] Hospital declaration INPATIENT level of care is warranted for this patient because patient is a 89 year old with who presents with suspicion of . I have a high level of concern because . Patient is at high risk for . Plan of care/treatment include . Patient care is expected to be greater than 2 midnights. OBSERVATION level of care is warranted for this patient. Patient is a 89 year old with who presents with . Patient will be admitted for 1 midnight, but if additional night(s) is/are necessary, patient will be converted to inpatient status for the entire hospitalization Disposition: Once the patient is stable to leave the hospital, I anticipate the patient will likely be discharged to the following environment: Estimated discharge date: I spent 70 minutes on this patient's case, and minutes was dedicated to counseling and/or care coordination. MIPS (Merit-based Incentive Payment System) Applicable CPT: 28397, 74270 CHECK ALL THAT ARE MET: Measure #5 (CHF): All ages. Prescribe JUSTIN/ARB upon discharge for patients with left ventricular systolic dysfunction. If not, the reason is clearly documented in the medical chart. Measure #8 (CHF): All ages. Prescribe a beta arlen upon discharge for patients with left ventricular systolic dysfunction. If not, the reason is clearly documented in the medical chart. Measure #47 Advance care plan or surrogate decision maker documented in the medical record. Measure #130 The provider has documented, updated, or reviewed the patients current medication list and has documented it in the patients note. Measure #374 (All): Send report to referring provider. Measure #407(Sepsis due to MSSA bacteremia): Age 18+ Patient treated with a beta-lactam antibiotic (Nafcillin, Oxacillin or Cefazolin) as definitive therapy. MEDICAL COMPLEXITY High complexity medical decision making (need 2/3 categories) Problem - need 4 points Acute/new problem with new plan for workup (4 points, 1 max) Acute/new problem without additional workup (3 points, 1 max) Unstable chronic problem actively being managed (2 point each, 2 max) Stable chronic problem actively being managed (1 point each, 2 max) Self-limited/transient process (constipation, muscle ache, etc) (1 point each , 2 max) Data - need 4 points Reviewed labs/imaging studies (1 points, 2 max) Independent review of imaging (EKG, xrays, etc) (2 points, 2 max) Discussed case with consult/other MD/RN (2 points, 2 max) High Risk - qualify if have one of the following: Severe exacerbation of acute problem, acute mental status change, IV narcotics , monitoring drug levels (vancomycin, INR, tacrolimus etc) Ryan Castillo MD Dec 08, 2018 20:00
--- NOTE | 2018-12-08 20:02 | NUR ---
HAND-OFF: Report given to Duane.RN. IV infiltrated, attempted x2 attempts. Endorsed to oncoming RN.
[2018-12-08] MEDS: Sennosides 8.6mg tab ORAL SCH (21:14)
--- NOTE | 2018-12-08 21:56 | General Progress Note ---
Assessment/Plan Problem List: (1) CADENCE (acute kidney injury) ICD Codes: N17.9 - Acute kidney failure, unspecified SNOMED: 58966993, 3017636 (2) Failure to thrive in adult ICD Codes: R62.7 - Adult failure to thrive SNOMED: 198712144 (3) Dehydration ICD Codes: E86.0 - Dehydration SNOMED: 03097440 (4) Altered level of consciousness ICD Codes: R40.4 - Transient alteration of awareness SNOMED: 6290091 Status: progressing, deteriorating Assessment/Plan: appetite has improved psych patient confused psych med adjustment per dr mann ma if ok w neuro and psychiatrist Subjective ROS Limited/Unobtainable: Yes Allergies: Coded Allergies: No Known Allergies (Unverified , 12/07/18) Objective Last 24 Hour Vital Signs Date Time Temp Pulse Resp B/P (MAP) Pulse Ox O2 Delivery O2 Flow Rate FiO2 12/08/18 20:00 97.2 95 18 98/68 (78) 95 12/08/18 16:00 98.0 85 16 106/65 (79) 95 12/08/18 12:00 97.5 96 18 95/65 (75) 95 12/08/18 08:00 96.9 98 18 107/65 (79) 95 12/08/18 08:00 Room Air 12/08/18 04:00 97.2 74 18 124/70 (88) 96 12/08/18 00:00 97.8 84 18 132/79 (96) 96 Intake and Output 12/07/18 12/08/18 18:59 06:59 Intake Total 700 ml 400 ml Output Total 1000 ml Balance 700 ml -600 ml Intake Oral 200 ml 400 ml IV Total 500 ml Output Urine Total 1000 ml # Voids 3 5 # Bowel Movements 1 Laboratory Tests 12/08/18 02:30: Urine Opiates Screen Negative, Urine Barbiturates Screen Negative, Phencyclidine (PCP) Screen Negative, Urine Amphetamines Screen Negative, Urine Benzodiazepines Screen Negative, Urine Cocaine Screen Negative, Urine Marijuana (THC) Screen Negative 12/08/18 04:50: White Blood Count 7.7, Red Blood Count 3.86L, Hemoglobin 11.6L, Hematocrit 35.7L , Mean Corpuscular Volume 92, Mean Corpuscular Hemoglobin 30.0, Mean Corpuscular Hemoglobin Concent 32.4, Red Cell Distribution Width 13.6, Platelet Count 276, Mean Platelet Volume 8.8, Neutrophils (%) (Auto) 50.9, Lymphocytes (% ) (Auto) 33.9, Monocytes (%) (Auto) 11.1H, Eosinophils (%) (Auto) 2.5, Basophils (%) (Auto) 1.5, Sodium Level 143, Potassium Level 3.9, Chloride Level 110H, Carbon Dioxide Level 24, Anion Gap 9, Blood Urea Nitrogen 32H, Creatinine 1.6H, Estimat Glomerular Filtration Rate , Glucose Level 102, Hemoglobin A1c 5.4 , Uric Acid 5.3, Calcium Level 9.2, Phosphorus Level 3.6, Magnesium Level 2.0, Total Bilirubin 0.2, Aspartate Amino Transf (AST/SGOT) 14L, Alanine Aminotransferase (ALT/SGPT) 13, Alkaline Phosphatase 132H, Total Creatine Kinase 156, C-Reactive Protein, Quantitative < 0.4, Pro-B-Type Natriuretic Peptide 504H, Total Protein 6.6, Albumin 3.0L, Globulin 3.6, Albumin/Globulin Ratio 0.8L, Triglycerides Level 75, Cholesterol Level 156, LDL Cholesterol 93, HDL Cholesterol 47, Cholesterol/HDL Ratio 3.3, Vitamin B12 Level 562, Folate 18.6, Thyroid Stimulating Hormone (TSH) 1.820 Height (Feet): 5 Height (Inches): 5.00 Weight (Pounds): 135 Cardiovascular: regular rhythm Respiratory/Chest: lungs clear Abdomen: soft Makayla Alvarado MD Dec 08, 2018 21:56
--- NOTE | 2018-12-08 22:10 | NUR ---
NURSE NOTES: Pt is in bed, awake and verbal. No acute distress noted.Vitas stable. Pt is confused. Fall precaution in place, bed alarm on. Pt has bilat soft wrist restraints, restraints sites are asymptomatic. Pt is able to eat and eats meals fully.Pt reorientated. Bed locked low in position,side rails up and call light within reach.Pt instructed to call before getting out of bed. Pt will be monitored.
[2018-12-09] VITALS: BP 96/58
--- NOTE | 2018-12-09 00:20 | NUR ---
NURSE NOTES: New IV access started on left forearm 22G. D5 1/2NS running at 75ml/hr.
--- NOTE | 2018-12-09 02:05 | NUR ---
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
[2018-12-09 04:00] VITALS: BP 95/59
[2018-12-09] MEDS: D5 1/2NS 1,000 ML IV SCH ×2 (04:24→10:47)
--- NOTE | 2018-12-09 06:50 | NUR ---
NURSE NOTES: Pt ate 100% of breakfast. Pt was fed.
[2018-12-09 07:14] LABS: ALANINE AMINOTRANSFERASE 13 U/L (12-78); ALKALINE PHOSPHATASE 120 U/L (46-116); ANION GAP 9 mmol/L (5-15); ASPARTATE AMINO TRANSFERASE 15 U/L (15-37); BILIRUBIN,TOTAL 0.3 MG/DL (0.2-1.0); BLOOD UREA NITROGEN 36 mg/dL (7-18); CALCIUM 8.7 MG/DL (8.5-10.1); CARBON DIOXIDE 25 MMOL/L (21-32); CHLORIDE 104 MMOL/L (98-107); CREATININE 1.6 MG/DL (0.55-1.30); PHOSPHORUS 2.9 MG/DL (2.5-4.9); SODIUM 138 MMOL/L (136-145)
--- NOTE | 2018-12-09 07:15 | NUR ---
HAND-OFF: Report given to MARKELL Bird.Informed Marge to call DR. Haynes regarding the VRE rectum result. Addendum: 12/09/18 at 0733 by GALEN LIAGN RN RN Also informed that patient is a Fall risk.
--- NOTE | 2018-12-09 07:23 | NUR ---
NURSE NOTES: Patient received in stable condition, resting in bed at this time. Patient is confused but not combative at this time. Soft restraints on bilateral wrists are on, skin is intact. No signs of impaired circulation observed. Patient's breakfast was fed to him. IV site on left arm patent and intact, running fluids at 75cc/hr. Bed locked in lowest position, bed alarm is on. Will continue to monitor.
[2018-12-09 08:00] VITALS: BP 108/70
--- NOTE | 2018-12-09 08:30 | NUR ---
FARM OPERATIONS MANAGER NOTES CALLED [facility]DB[facility] AND WAS TOLD ADMISSION OFFICE WASNT OPEN YET. DON AND MOBILE PARAMEDICAL EXAMINER WASN'T IN YET.
[2018-12-09] MEDS: Tamsulosin 0.4mg cap ORAL SCH (10:00)
[2018-12-09] MEDS: Mesalamine 400mg cap ORAL SCH (10:00)
[2018-12-09] MEDS: Lactobacillus-GG tablet ORAL SCH (10:00)
[2018-12-09] MEDS: Docusate 100mg cap ORAL SCH (10:00)
[2018-12-09] MEDS: Multivitamins W/Minerals 15 ML UDC ORAL SCH (10:01)
--- NOTE | 2018-12-09 10:39 | General Progress Note ---
Assessment/Plan Problem List: (1) CADENCE (acute kidney injury) ICD Codes: N17.9 - Acute kidney failure, unspecified SNOMED: 72071492, 5449787 (2) Failure to thrive in adult ICD Codes: R62.7 - Adult failure to thrive SNOMED: 628811814 (3) Dehydration ICD Codes: E86.0 - Dehydration SNOMED: 62368441 (4) Altered level of consciousness ICD Codes: R40.4 - Transient alteration of awareness SNOMED: 0255643 Status: progressing, deteriorating Assessment/Plan: appetite has improved psych patient confused dehydration has improved baseline dementia needs to go back to snf dc if ok w neuro and psychiatrist Subjective ROS Limited/Unobtainable: Yes Allergies: Coded Allergies: No Known Allergies (Unverified , 12/07/18) Objective Last 24 Hour Vital Signs Date Time Temp Pulse Resp B/P (MAP) Pulse Ox O2 Delivery O2 Flow Rate FiO2 12/09/18 08:00 97.9 92 19 108/70 (83) 94 12/09/18 04:00 97.8 95 18 95/59 (71) 98 12/09/18 00:00 98.2 95 18 96/58 (71) 98 12/08/18 21:00 Room Air 12/08/18 20:00 97.2 95 18 98/68 (78) 95 12/08/18 16:00 98.0 85 16 106/65 (79) 95 12/08/18 12:00 97.5 96 18 95/65 (75) 95 Intake and Output 12/08/18 12/09/18 19:00 07:00 Intake Total 1000 ml 1170 ml Balance 1000 ml 1170 ml Intake Oral 1000 ml 420 ml IV Total 750 ml # Voids 3 2 # Bowel Movements 1 1 Laboratory Tests 12/09/18 06:30: Sodium Level 138, Potassium Level 4.0, Chloride Level 104, Carbon Dioxide Level 25, Anion Gap 9, Blood Urea Nitrogen 36H, Creatinine 1.6H, Estimat Glomerular Filtration Rate , Glucose Level 113H, Uric Acid 4.5, Calcium Level 8.7, Phosphorus Level 2.9, Magnesium Level 1.7L, Total Bilirubin 0.3, Aspartate Amino Transf (AST/SGOT) 15, Alanine Aminotransferase (ALT/SGPT) 13, Alkaline Phosphatase 120H, Total Protein 6.1L, Albumin 3.0L, Globulin 3.1, Albumin/ Globulin Ratio 1.0 Height (Feet): 5 Height (Inches): 5.00 Weight (Pounds): 135 General Appearance: confused Cardiovascular: normal rate Respiratory/Chest: lungs clear Makayla Alvarado MD Dec 09, 2018 10:38
--- NOTE | 2018-12-09 10:41 | NUR ---
[facility] [employer] NOTE CALLED [facility] AND SPOKE TO THE ADMISSIONS OFF WAS TOLD SHE JUST GOT IN AND I HAD TO CALL BACK BECAUSE SHE WASN'T READY YET TO LOOK AT PATIENTS CHART.
--- NOTE | 2018-12-09 11:02 | Nephrology Progress Note ---
Assessment/Plan Problem List: (1) CADENCE (acute kidney injury) (2) Dehydration (3) UTI (urinary tract infection) Assessment dehydration Failure to Thrive COPD Psych history UTI Plan stable Hydrate Urine c/s urine tox screen monitor renal parameters OK to Dc from renal stand Subjective ROS Limited/Unobtainable: No Constitutional: Reports: malaise Objective Objective Last 24 Hour Vital Signs Date Time Temp Pulse Resp B/P (MAP) Pulse Ox O2 Delivery O2 Flow Rate FiO2 12/09/18 09:00 Room Air 12/09/18 08:00 97.9 92 19 108/70 (83) 94 12/09/18 04:00 97.8 95 18 95/59 (71) 98 12/09/18 00:00 98.2 95 18 96/58 (71) 98 12/08/18 21:00 Room Air 12/08/18 20:00 97.2 95 18 98/68 (78) 95 12/08/18 16:00 98.0 85 16 106/65 (79) 95 12/08/18 12:00 97.5 96 18 95/65 (75) 95 Intake and Output 12/08/18 12/09/18 19:00 07:00 Intake Total 1000 ml 1170 ml Balance 1000 ml 1170 ml Intake Oral 1000 ml 420 ml IV Total 750 ml # Voids 3 2 # Bowel Movements 1 1 Laboratory Tests 12/09/18 06:30: Sodium Level 138, Potassium Level 4.0, Chloride Level 104, Carbon Dioxide Level 25, Anion Gap 9, Blood Urea Nitrogen 36H, Creatinine 1.6H, Estimat Glomerular Filtration Rate , Glucose Level 113H, Uric Acid 4.5, Calcium Level 8.7, Phosphorus Level 2.9, Magnesium Level 1.7L, Total Bilirubin 0.3, Aspartate Amino Transf (AST/SGOT) 15, Alanine Aminotransferase (ALT/SGPT) 13, Alkaline Phosphatase 120H, Total Protein 6.1L, Albumin 3.0L, Globulin 3.1, Albumin/ Globulin Ratio 1.0 Height (Feet): 5 Height (Inches): 5.00 Weight (Pounds): 135 General Appearance: no apparent distress Objective no change Gerardo Medina MD Dec 09, 2018 11:02
[2018-12-09] MEDS ORDERED: D5 1/2NS 1000ml IV ONE (11:59)
--- NOTE | 2018-12-09 12:08 | GI Progress Note ---
Assessment/Plan Problems: (1) Failure to thrive in adult ICD Codes: R62.7 - Adult failure to thrive SNOMED: 223761479 (2) Altered level of consciousness ICD Codes: R40.4 - Transient alteration of awareness SNOMED: 8723849 (3) Severe malnutrition ICD Codes: E43 - Unspecified severe protein-calorie malnutrition SNOMED: 85643363 Status: unchanged Status Narrative Discussed with Dr. Marcus. Assessment/Plan No plans for GI procedures at this time supportive care Patient is on a regular diet consider marinol Zofran as needed PPI Follow-up psychiatric recommendations outpatient GI procedures dc planning The patient was seen and examined at bedside and all new and available data was reviewed in the patients chart. I agree with the above findings, impression and plan. (Patient seen earlier today. Signature stamp does not reflect patient encounter time.). - Ye Marcus MD Subjective Gastrointestinal/Abdominal: Reports: no symptoms Objective Last 24 Hour Vital Signs Date Time Temp Pulse Resp B/P (MAP) Pulse Ox O2 Delivery O2 Flow Rate FiO2 12/09/18 09:00 Room Air 12/09/18 08:00 97.9 92 19 108/70 (83) 94 12/09/18 04:00 97.8 95 18 95/59 (71) 98 12/09/18 00:00 98.2 95 18 96/58 (71) 98 12/08/18 21:00 Room Air 12/08/18 20:00 97.2 95 18 98/68 (78) 95 12/08/18 16:00 98.0 85 16 106/65 (79) 95 Intake and Output 12/08/18 12/09/18 19:00 07:00 Intake Total 1000 ml 1170 ml Balance 1000 ml 1170 ml Intake Oral 1000 ml 420 ml IV Total 750 ml # Voids 3 2 # Bowel Movements 1 1 Laboratory Tests Test 12/09/18 06:30 Sodium Level 138 MMOL/L (136-145) Potassium Level 4.0 MMOL/L (3.5-5.1) Chloride Level 104 MMOL/L (98-107) Carbon Dioxide Level 25 MMOL/L (21-32) Anion Gap 9 mmol/L (5-15) Blood Urea Nitrogen 36 mg/dL (7-18) H Creatinine 1.6 MG/DL (0.55-1.30) H Estimat Glomerular Filtration Rate mL/min (>60) Glucose Level 113 MG/DL (74-106) H Uric Acid 4.5 MG/DL (2.6-7.2) Calcium Level 8.7 MG/DL (8.5-10.1) Phosphorus Level 2.9 MG/DL (2.5-4.9) Magnesium Level 1.7 MG/DL (1.8-2.4) L Total Bilirubin 0.3 MG/DL (0.2-1.0) Aspartate Amino Transf (AST/SGOT) 15 U/L (15-37) Alanine Aminotransferase (ALT/SGPT) 13 U/L (12-78) Alkaline Phosphatase 120 U/L (46-116) H Total Protein 6.1 G/DL (6.4-8.2) L Albumin 3.0 G/DL (3.4-5.0) L Globulin 3.1 g/dL Albumin/Globulin Ratio 1.0 (1.0-2.7) Height (Feet): 5 Height (Inches): 5.00 Weight (Pounds): 135 General Appearance: WD/WN, no apparent distress, alert Cardiovascular: normal rate Respiratory/Chest: normal breath sounds, no respiratory distress Abdominal Exam: normal bowel sounds, non tender, soft Extremities: normal range of motion, non-tender Rayna Piedra NP Dec 09, 2018 12:08
--- NOTE | 2018-12-09 12:11 | NUR ---
NURSE NOTES: Patient discharged back to [facility]. Report given to September RN. IV site safely removed, covered with gauze and tape. No bleeding observed. Accompanied by ambulance personnel. No belongings.
--- NOTE | 2018-12-09 19:30 | Neurology Progress Note ---
Interim History Interim History ROS Limited/Unobtainable: No Interim History seroquel helped, more clam now Review of Systems All Systems: reviewed and negative except above Objective Physical Exam Last Vital Signs Date Time Temp Pulse Resp B/P (MAP) Pulse Ox O2 Delivery O2 Flow Rate FiO2 12/09/18 09:00 Room Air 12/09/18 08:00 97.9 92 19 108/70 (83) 94 Laboratory Tests Test 12/09/18 06:30 Sodium Level 138 MMOL/L (136-145) Potassium Level 4.0 MMOL/L (3.5-5.1) Chloride Level 104 MMOL/L (98-107) Carbon Dioxide Level 25 MMOL/L (21-32) Anion Gap 9 mmol/L (5-15) Blood Urea Nitrogen 36 mg/dL (7-18) H Creatinine 1.6 MG/DL (0.55-1.30) H Estimat Glomerular Filtration Rate mL/min (>60) Glucose Level 113 MG/DL (74-106) H Uric Acid 4.5 MG/DL (2.6-7.2) Calcium Level 8.7 MG/DL (8.5-10.1) Phosphorus Level 2.9 MG/DL (2.5-4.9) Magnesium Level 1.7 MG/DL (1.8-2.4) L Total Bilirubin 0.3 MG/DL (0.2-1.0) Aspartate Amino Transf (AST/SGOT) 15 U/L (15-37) Alanine Aminotransferase (ALT/SGPT) 13 U/L (12-78) Alkaline Phosphatase 120 U/L (46-116) H Total Protein 6.1 G/DL (6.4-8.2) L Albumin 3.0 G/DL (3.4-5.0) L Globulin 3.1 g/dL Albumin/Globulin Ratio 1.0 (1.0-2.7) Neurologic Exam Objective General appearance: calm Head: Normocephalic, without obvious abnormality, atraumatic Eyes: conjunctivae/corneas clear. PERRL, EOM's intact. Fundi benign Throat: Lips, mucosa, and tongue normal. Teeth and gums normal Neck: supple, symmetrical, trachea midline, no adenopathy, thyroid: not enlarged, symmetric, no tenderness/mass/nodules, no carotid bruit and no JVD Lungs: clear to auscultation bilaterally Heart: regular rate and rhythm, S1, S2 normal, no murmur, click, rub or gallop Abdomen: soft, non-tender. Bowel sounds normal. No masses, no organomegaly Extremities: extremities normal, atraumatic, no cyanosis or edema Pulses: 2+ and symmetric Skin: Skin color, texture, turgor normal. No rashes or lesions Neurologic: more alert, moves all 4 Impression/Recommendations Problems: (1) CADENCE (acute kidney injury) (2) Severe malnutrition (3) Altered level of consciousness (4) Failure to thrive in adult (5) Dehydration (6) UTI (urinary tract infection) Status: unchanged Diagnostic Impression dc back to snf atb per primary pt ot Ryan Castillo MD Dec 09, 2018 19:30
--- NOTE | 2018-12-11 15:50 | Discharge Summary ---
Discharge Summary Discharge Summary _ DATE OF ADMISSION: 12/07/2018 DATE OF DISCHARGE: 12/09/2018 DISCHARGED BY: Dr. Manning REASON FOR ADMISSION: 73 years old male with past medical history of COPD, schizophrenia, resident of long-term facility, presented for altered mental status. At baseline patient confused and bedbound, however according to jail note, patient became recently more confused, with decreased appetite. He also demonstrated nonproductive cough in the last week. No fever or chills. No nausea or vomiting. No diarrhea. Upon evaluation vital signs revealed no fever and were stable. Laboratory work-up revealed no leukocytosis, stable hemoglobin and hematocrit. Stable electrolytes. BUN 25, creatinine 1.6. Stable LFT. Stable glucose. Urinalysis revealed +2 protein, +1 leukocyte esterase. Chest x-ray revealed no acute cardiopulmonary pathology. EKG revealed normal sinus rhythm, no acute ischemic changes, troponin - 0.015. Patient subsequently was admitted for further management. CONSULTANTS: neurologist Dr. Castillo GI specialist Dr. Marcus sign hanger Dr. Medina psychiatrist [facility] COURSE: Patient admitted to medical surgical floor and started on IV hydration. Renal parameters and electrolytes were closely monitored, electrolytes corrected as needed. Urine toxicology screen was negative. Urine culture revealed Staph epidermidis. Supplemental oxygen provided as needed to keep pulse oximetry above 92%. Pulse oximetry was stable on room air. No evidence of COPD exacerbation Neurologist seen and evaluated patient . GI specialist followed. Hemoglobin and hematocrit remained stable. No plans for GI procedure at this time. Supportive care provided. Patient was able to tolerate diet. Antiemetic provided as needed. GI prophylaxis with PPI provided. Bowel regimen instituted. GI specialist recommended outpatient GI procedure. Can Vacuum Tester recommendations regarding protein supplements implemented in plan of care. Psychiatrist seen and evaluated patient. Per psychiatrist, patient had acute encephalopathy, major depressive disorder and psychotic disorder along with failure to thrive. Psychiatric medication regimen was optimized. Patient was provided with reality orientation and supportive therapy. FINAL DIAGNOSES: Dehydration Acute encephalopathy UTI with Staph epidermidis COPD Severe malnutrition Major depressive disorder Psychotic disorder DISCHARGE MEDICATIONS: See Medication Reconciliation list. DISCHARGE INSTRUCTIONS: Patient was discharged to the long-term facility. Follow up with medical doctor at the facility. I have been assigned to dictate discharge summary for this account. I was not involved in the patient's management. Mahi Martinez NP Dec 11, 2018 15:50
== END 2018-12-09 12:00 | DRG 70 ==
LOC: EDBD 00:01 → EMR 00:41 → EDBEDREQ 01:18 → 4E 01:58 → EDBEDREQ 02:41 → 4E 20:31
DX: G93.40 Encephalopathy, unspecified (principal); E43 Unspecified severe protein-calorie malnutrition; N17.9 Acute kidney failure, unspecified; N39.0 Urinary tract infection, site not specified; E86.0 Dehydration; R62.7 Adult failure to thrive; Z68.22 Body mass index [BMI] 22.0-22.9, adult; B95.7 Other staphylococcus as the cause of diseases classified elsewhere; J44.9 Chronic obstructive pulmonary disease, unspecified; F32.9 Major depressive disorder, single episode, unspecified; F29 Unspecified psychosis not due to a substance or known physiological condition; F03.90 Unspecified dementia, unspecified severity, without behavioral disturbance, psychotic disturbance, mood disturbance, and anxiety
CPT/HCPCS: 36415; 71045; 80053; 80061; 80307; 81001; 82550; 82607; 82746; 83036; 83735; 83880; 84100; 84443; 84484; 84550; 85025; 86140; 87081; 87086; 93005; 96361; 96374; 96376; 99285